=== PATIENT | female | born 1970 | race Caucasian/White ===

== ENCOUNTER 2017-10-03 10:42 | Day surgery (SDC) | payer OTHER ==
--- NOTE | 2017-10-01 06:36 | PREOPHP ---
DATE OF ADMISSION: 10/03/2017 This patient is coming for surgery on 10/03/2017. HISTORY OF PRESENT ILLNESS: This is a 47 years old female 2, para 3, abortions 0. This pat ient had been coming in to the emergency room due to large fibroids and hematometra. This patient h ad been seen due to intractable pelvic pain and she had a D and C, hysteroscopy and HTA in March. The ultrasound is revealing accumulation of blood inside the uterus with large fibroids and she is advised for a D and C at this time with the possibility of need for hysterectomy later on. PAST MEDICAL HISTORY: Otherwise, had been related to severe menometrorrhagia. She also loses urine with Valsalva maneuver. She had thyroid disease and she had a previous section and a tuba l ligation. ALLERGIES: THE PATIENT HAS NO ALLERGIES. MEDICATIONS: She had been on thyroid medication. FAMILY HISTORY: Negative. REVIEW OF SYSTEMS: Noncontributory. PHYSICAL EXAMINATION: VITAL SIGNS: Stable. She is 4 feet 10 inches. She weighs 112 pounds. Her blood pressure is 120/8 0, pulse is 80, respirations 16. HEAD AND NECK: Normal. CHEST: Clear. HEART: Normal sinus rhythm. LUNGS: Clear. ABDOMEN: Soft, nontender, no masses. GENITALIA: With some prolapse of the uterus, grade II and of the bladder, grade II again. Pelvic o therwise was remarkable for an enlargement of the uterus compared to last year's and with fibroid ut erus and perimenopausal syndrome. EXTREMITIES: Normal. DIAGNOSES: 1. Fibroid uterus. 2. Large hematometra. 3. Intractable pelvic pain. 4. Previous hysteroscopic thermal ablation. PLAN: She is undergoing a fractional D and C to relieve the blood from the uterus and for further d iagnosis and treatment. She has been advised of the possible risks and possible complications of th e surgery with her alternatives and options. Written information was provided. She had no more que stions and agreed to go ahead with the procedure with full understanding. Dictated By: DELFIN DOLL/AG Conf#: [id number] DID#: [id number]
[~2017-10-03] VITALS: Ht 152.4 cm; Wt 96.6 kg
[2017-10-03] VITALS (9 sets, daily range): BP systolic 78–140; BP diastolic 41–64; PULSE 65–84; RESP 14–26; Ht 152.4 cm; Wt 96.6 kg
[~2017-10-03 10:42] MED LIST: LEVO50TA74 PO
--- NOTE | 2017-10-03 11:32 | HPN ---
Date/Time of Note Date/Time of Note DATE: 10/03/17 TIME: 11:32 Interval H&P Admission Note Pt. seen H&P reviewed: No system changes DELFIN MTZ MD Oct 03, 2017 11:32
[2017-10-03] MEDS ORDERED: PROPOFOL 20 ML ONE ×2 (13:47→14:08)
[2017-10-03] MEDS ORDERED: ONDANSETRON 4 MG INJ ONE (13:47)
[2017-10-03] MEDS ORDERED: FENTAnyl 50 MCG/ML VIAL ONE (13:47)
[2017-10-03] MEDS ORDERED: PROPOFOL 0 ML ONE (13:47)
[2017-10-03] MEDS ORDERED: METOCLOPRAMIDE 10 MG INJ ONE (13:47)
[2017-10-03] MEDS ORDERED: MIDAZOLAM 1 MG/ML 2 ML INJ ONE (13:47)
[2017-10-03] MEDS ORDERED: KETOROLAC 30 MG INJ ONE (13:48)
[2017-10-03] MEDS ORDERED: CEFAZOLIN 1 GM INJ ONE (13:52)
--- NOTE | 2017-10-03 14:05 | PD.PPDC ---
[employer] Discharge Instruction Condition Patient Condition: Good Diet Diet: Resume Regular Diet Activity/Restrictions Activity: Normal Activity May Shower Restrictions: No Exercising No Lifting No Driving No Sexual Activity Nothing in the Vagina No [place] No Tampons, douche Return to clinic for [facility] Instructions: Fever greater than 101 Chills Worsening abdominal pain Excessive Vaginal Bleeding More than 2 pads per hour Unable to tolerate diet DELFIN MTZ MD Oct 03, 2017 14:05
--- NOTE | 2017-10-03 14:09 | SIPON ---
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
[2017-10-03] MEDS ORDERED: PHENYLephrine (100 MCG/ML) 5ML SYG ONE (14:10)
[2017-10-03] MEDS ORDERED: MEPERIDINE 25 MG INJ IV PRN (14:30)
[2017-10-03] MEDS ORDERED: OXYCODONE/ACETAMINOPHEN (5/325) TAB PO PRN ×2 (14:30)
[2017-10-03] MEDS ORDERED: HYDROmorphONE (0.2 MG/ML) 10ML SYG IV PRN ×3 (14:30)
[2017-10-03] MEDS ORDERED: ONDANSETRON 4 MG INJ IV PRN (14:30)
[2017-10-03] MEDS ORDERED: DIPHENHYDRAMINE 50 MG INJ IV PRN (14:30)
[2017-10-03] MEDS ORDERED: KETOROLAC 30 MG INJ IV PRN (14:30)
[2017-10-03] MEDS ORDERED: EPHEDrine SULFATE 50 MG/5 ML SYG IV PRN (14:30)
--- NOTE | 2017-10-03 17:57 | OPR ---
DATE OF OPERATION: 10/03/2017 PROCEDURE: Fractional D and C. PREOPERATIVE DIAGNOSES: 1. Intractable pelvic pain and bleeding. 2. Fibroid uterus. 3. Hematometra. 4. Anemia. 5. Previous hydrothermal ablation of the uterus. POSTOPERATIVE DIAGNOSES: 1. Intractable pelvic pain and bleeding. 2. Fibroid uterus. 3. Hematometra. 4. Anemia. 5. Previous hydrothermal ablation of the uterus. ANESTHESIOLOGIST: Dr. Contreras. COMPLICATIONS: None. DESCRIPTION OF PROCEDURE: The patient was given general anesthesia, placed in the lithotomy positio n. The perineal and vaginal area were prepped and draped. A vaginal speculum was applied. The cer vix was held with a forceps. Endocervical curettage was done. The uterus was sounded to a depth of 3 inches and dilated and systematic curettage of the endometrium revealed very scanty tissue. Exam ination under anesthesia revealed that the uterus was anteverted with fibroids. The adnexa were fel t and normal. The procedure was finished by removing all of the instruments, and the patient left t he OR awake and stable. Sponge counts and instrument counts were correct. Intravenous antibiotics were given for prophylaxis. Blood loss was minimal and the urine was clear. Dictated By: DELFIN DOLL/AG Conf#: [id number] DID#: [id number]
--- NOTE | 2017-10-04 15:06 | RADRPT ---
Vent Rate: 61 bpm RR Interval: 0 msec MO Interval: 162 msec QRS Duration: 78 msec QT Interval: 420 msec QTC Interval: 422 msec P-R-T [place]: 31 - 77 - 44 degrees Normal sinus rhythm Normal ECG No previous tracing available for comparison Electronically Signed By: Kip Chavez [id number]
== END 2017-10-03 16:15 | disposition home or self-care (01) ==
LOC: SDS 10:42
PROVIDERS: ATTEND Obstetrics & Gynecology
DX: R10.2 Pelvic and perineal pain (principal); D25.9 Leiomyoma of uterus, unspecified; N85.7 Hematometra; D64.9 Anemia, unspecified; N93.9 Abnormal uterine and vaginal bleeding, unspecified; E66.9 Obesity, unspecified; Z68.41 Body mass index [BMI] 40.0-44.9, adult
CPT/HCPCS: 58120; 88305; 93005; J0690; J1885; J2250; J2370; J2405; J2765; J3010; Z7512; Z7610

== ENCOUNTER 2018-06-11 06:07 | Inpatient (IN) | END 2018-06-14 15:35 | disposition home or self-care (01) | DRG 742 ==